=== PATIENT | female | born 1955 | race Caucasian/White ===

== ENCOUNTER 2019-04-30 08:26 | Observation (INO) | payer OTHER ==
[2019-04-30 08:34] VITALS: BMI 24.1
--- NOTE | 2019-04-30 09:10 | EKG ---
Test Reason : Blood Pressure : / mmHG Vent. Rate : 100 BPM Atrial Rate : 100 BPM P-R Int : 148 ms QRS Dur : 082 ms QT Int : 318 ms P-R-T Axes : 056 053 215 degrees QTc Int : 410 ms NORMAL SINUS RHYTHM ABNORMAL ECG WHEN COMPARED WITH ECG OF 27-APR-2019 13:10, NO SIGNIFICANT CHANGE WAS FOUND Confirmed by Esperanza Gr ([id number]) on 04/30/2019 9:10:05 AM Referred By: Confirmed By:Esperanza Gr
[2019-04-30] MEDS ORDERED: ASPIRIN 81 MG CHEWABLE TABLETS PO ONE (09:30)
[2019-04-30] MEDS ORDERED: ASPIRIN 81 MG CHEWABLE TABLETS ONE (09:34)
[2019-04-30] MEDS ORDERED: ASPIRIN COATED 81 MG TABLET.EC ONE (09:35)
--- NOTE | 2019-04-30 09:42 | PDOC ---
History of Present Illness - General Chief Complaint: Chest Pain Stated Complaint: SENT BY PCP Time Seen by Provider: 04/30/19 09:41 - History of Present Illness Initial Comments: 04/30/19 09:41 The patient denies chest pain, shortness of breath, headache and dizziness. Denies fever, chills, nausea, vomit, diarrhea and constipation. Denies dysuria, frequency, urgency and hematuria. Past History - Past Medical History Allergies/Adverse Reactions: Allergies Allergy/AdvReac Type Severity Reaction Status Date / Time naproxen sodium [From Aleve] Allergy Mild Nausea Verified 06/14/13 15:16 Tint in chlora prep AdvReac Intermediate Rash Uncoded 04/21/11 10:35 Home Medications: Ambulatory Orders Atorvastatin Ca [Lipitor] 20 mg PO HS 06/14/13 Calcium [Natural Calcium] 1,200 mg PO DAILY 06/14/13 Cholecalciferol (Vitamin D3) [Vitamin D] 1 tab PO DAILY 06/14/13 Fexofenadine HCl [Milena] 1 tab PO DAILY 06/14/13 Multivitamin [Multi-Day Vitamins] 1 each PO DAILY 06/14/13 Immu Globulin,Gamma (IgG) [Carimune Nf Nanofiltered] 6 gm IJ ASDIR 06/15/13 Anemia: No Asthma: No Cancer: No Cardiac Disorders: No CVA: No COPD: No CHF: No Dementia: No Diabetes: Yes (NO MEDS) GI Disorders: No Disorders: No HTN: No Hypercholesterolemia: Yes Liver Disease: No Seizures: No Thyroid Disease: No - Immunization History Immunization Up to Date: No - Psycho Social/Smoking Cessation Hx Smoking History: Never smoked Have you smoked in the past 12 months: No Information on smoking cessation initiated: No Hx Alcohol Use: No Drug/Substance Use Hx: No Review of Systems - Review of Systems Comments:: 04/30/19 09:41 GENERAL/CONSTITUTIONAL: No fever or chills. No weakness. HEAD, EYES, EARS, NOSE AND THROAT: No change in vision. No ear pain or discharge. No sore throat. CARDIOVASCULAR: No chest pain or shortness of breath RESPIRATORY: No cough, wheezing, or hemoptysis. GASTROINTESTINAL: No nausea, vomiting, diarrhea or constipation. GENITOURINARY: No dysuria, frequency, or change in urination. MUSCULOSKELETAL: No joint or muscle swelling or pain. No neck or back pain. SKIN: No rash NEUROLOGIC: No headache, vertigo, loss of consciousness, or change in strength/ sensation. ENDOCRINE: No increased thirst. No abnormal weight change HEMATOLOGIC/LYMPHATIC: No anemia, easy bleeding, or history of blood clots. ALLERGIC/IMMUNOLOGIC: No hives or skin allergy. *Physical Exam - Vital Signs Last Vital Signs Temp Pulse Resp BP Pulse Ox 97.7 F 103 H 16 130/75 98 04/30/19 08:31 04/30/19 08:31 04/30/19 08:31 04/30/19 08:31 04/30/19 08:31 - Physical Exam 04/30/19 09:42 GENERAL: Awake, alert, and fully oriented, in no acute distress HEAD: No signs of trauma, normocephalic, atraumatic EYES: PERRLA, EOMI, sclera anicteric, conjunctiva clear ENT: Auricles normal inspection, hearing grossly normal, nares patent, oropharynx clear without exudates. Moist mucosa NECK: Normal ROM, supple, no lymphadenopathy, JVD, or masses LUNGS: No distress, speaks full sentences, clear to auscultation bilaterally HEART: Regular rate and rhythm, normal S1 and S2, no murmurs, rubs or gallops, peripheral pulses normal and equal bilaterally. ABDOMEN: Soft, nontender, normoactive bowel sounds. No guarding, no rebound. No masses EXTREMITIES: Normal inspection, Normal range of motion, no edema. No clubbing or cyanosis. NEUROLOGICAL: Cranial nerves II through XII grossly intact. Normal speech, normal gait, no focal sensorimotor deficits SKIN: Warm, Dry, normal turgor, no rashes or lesions noted. ED Treatment Course - Medications Given in the ED: ED Medications Discontinued Medications Generic Name Dose Route Start Last Admin Trade Name Freq PRN Reason Stop Dose Admin Aspirin 324 mg 04/30/19 09:30 04/30/19 09:33 Asa - PO 04/30/19 09:31 324 mg ONCE ONE Administration Discharge - Discharge Information Condition: Stable - Follow up/Referral Referrals: Carmelo White MD [Primary Care Provider] - - Patient Discharge Instructions - Post Discharge Activity
--- NOTE | 2019-04-30 09:45 | PDOC ---
History of Present Illness - General Chief Complaint: Chest Pain Stated Complaint: SENT BY PCP History Source: Patient Exam Limitations: No Limitations - History of Present Illness Initial Comments: 04/30/19 09:39 [id number] with h/o HLD (on medication), borderline DM (states diet controlled), and CIDP (gets IVIG infusion [id number]) who was instructed to come to the ED by her PCP Dr. White for chest tightness and cough x months, as well as new TWI found on EKG in clinic three days ago. She has had the chest "heaviness" and residual cough ever since getting a "chest cold" in 02/2019 and states she feels this cold never completely resolved. The patient had gone home on Tuesday after the EKG was completed, and Dr. White went into the office on Tuesday and called her to notify her of the abnormal results, but she did not waste picker her phone. The patient states she has no change in her symptoms today from the past few months. She denies SOB, LEUNG, dizziness, lightheadedness, edema , abdominal pain, back pain, n/t/w focally, or other symptoms. Past History - Past Medical History Allergies/Adverse Reactions: Allergies Allergy/AdvReac Type Severity Reaction Status Date / Time naproxen sodium [From Aleve] Allergy Mild Nausea Verified 06/14/13 15:16 Tint in chlora prep AdvReac Intermediate Rash Uncoded 04/21/11 10:35 Home Medications: Ambulatory Orders Atorvastatin Ca [Lipitor] 20 mg PO HS 06/14/13 Calcium [Natural Calcium] 1,200 mg PO DAILY 06/14/13 Cholecalciferol (Vitamin D3) [Vitamin D] 1 tab PO DAILY 06/14/13 Fexofenadine HCl [Milena] 1 tab PO DAILY 06/14/13 Multivitamin [Multi-Day Vitamins] 1 each PO DAILY 06/14/13 Immu Globulin,Gamma (IgG) [Carimune Nf Nanofiltered] 6 gm IJ ASDIR 06/15/13 Anemia: No Asthma: No Cancer: No Cardiac Disorders: No CVA: No COPD: No CHF: No Dementia: No Diabetes: Yes (NO MEDS) GI Disorders: No Disorders: No HTN: No Hypercholesterolemia: Yes Liver Disease: No Seizures: No Thyroid Disease: No - Immunization History Immunization Up to Date: No - Psycho Social/Smoking Cessation Hx Smoking History: Never smoked Have you smoked in the past 12 months: No Information on smoking cessation initiated: No Hx Alcohol Use: No Drug/Substance Use Hx: No Cardiac Specific PMH - Complaint Specific PMHX Pacemaker: No Review of Systems - Review of Systems Able to Perform ROS?: Yes Comments:: 04/30/19 09:53 GEN: no fever, chills, malaise, or generalized weakness HEENT: no ear pain, congestion, sore throat, vision change, or eye pain CV: chest heaviness, no palpitations, lightheadedness, syncope, or edema RESP: cough, no SOB, or wheezing GI: no abdominal pain, nausea, vomiting, diarrhea, constipation, or rectal bleed : no dysuria, hematuria, or discharge MSK: no muscle weakness or pain, no joint swelling or pain NEURO: no headache, vertigo, numbness, tingling, or focal weakness PSYCH: no SI, HI, or behavior change SKIN: no jaundice, rash, lesions, or unexplained bruises ROS otherwise negative except as noted in HPI *Physical Exam - Vital Signs Last Vital Signs Temp Pulse Resp BP Pulse Ox 97.7 F 103 H 16 130/75 98 04/30/19 08:31 04/30/19 08:31 04/30/19 08:31 04/30/19 08:31 04/30/19 08:31 - Physical Exam 04/30/19 09:54 GENERAL: well-appearing, A/Ox4, no distress, answers questions appropriately, at bedside appears supportive HEENT: PERRLA, EOMI, moist mucous membranes NECK/BACK: no midline ttp, no spinal stepoff or deformity, no hematoma, full ROM , neck supple CARDIOVASCULAR: regular rate/rhythm, no MGR, strong peripheral pulses, capillary refill <2 seconds, extremities wwp, no edema LUNGS/RESPIRATORY: no respiratory distress, CTAB GI/ABDOMEN: symmetric [id number], normoactive BS, soft, no ttp, no midline pulsatile masses : no CVA tenderness EXTREMITIES: no muscle atrophy, no acute deformity SKIN: warm and dry, no pallor, no jaundice, no rash, no bruising, no skin breakdown, no cuts, no lesions NEUROLOGICAL: GCS 15, CN II-XII grossly intact, 5/5 strength proximally and distally, no facial droop Heart Score/ECG Review - History History: Slightly suspicious - Electrocardiogram EKG: Non specific repolarization disturbance - Age Age: >/= 65 - Risk Factors Risk Factors Heart Score: Yes Hx Hypercholesterolemia Based on the list above the patient has:: 1-2 risk factors - Troponin Troponin: </= normal limit - Score Heart Score - Total: 4 #1 04/30/19 10:54 SR rate 100 with normal axis and intervals, inferolateral TWI, submilimeter TRAVON in V1-2 ED Treatment Course - LABORATORY CBC & Chemistry Diagram: 04/30/19 09:20 04/30/19 09:20 - ADDITIONAL ORDERS Additional order review: Laboratory Results 04/30/19 04/30/19 04/30/19 09:20 09:20 09:20 Sodium 138 Potassium 3.8 Chloride 105 Carbon Dioxide 28 Anion Gap 5 L BUN 14.0 Creatinine 0.6 Est GFR (CKD-EPI)AfAm 110.86 Est GFR (CKD-EPI)NonAf 95.65 Random Glucose 151 H Calcium 9.6 Total Bilirubin 0.5 AST 26 ALT 28 Alkaline Phosphatase 72 Creatine Kinase 102 Troponin I < 0.02 Total Protein 8.0 Albumin 4.1 Urine Color Yellow Urine Appearance Clear Urine pH 7.0 Ur Specific [place] 1.003 L Urine Protein Negative Urine Glucose (UA) Negative Urine Ketones Negative Urine Blood Negative Urine Nitrite Negative Urine Bilirubin Negative Urine Urobilinogen 0.2 Ur Leukocyte Esterase Negative 04/30/19 09:20 RBC 4.61 MCV 89.0 MCHC 34.1 RDW 13.3 MPV 10.4 Neutrophils % 51.3 Lymphocytes % 37.4 D Monocytes % 9.0 Eosinophils % 1.6 Basophils % 0.7 - RADIOLOGY Radiology Studies Ordered: Category Date Time Status CHEST PA & LAT [RAD] Stat Radiology 04/30/19 09:30 Taken - Medications Given in the ED: ED Medications Discontinued Medications Generic Name Dose Route Start Last Admin Trade Name Freq PRN Reason Stop Dose Admin Aspirin 324 mg 04/30/19 09:30 04/30/19 09:33 Asa - PO 04/30/19 09:31 324 mg ONCE ONE Administration Medical Decision Making - Medical Decision Making 04/30/19 09:55 [id number] Pt p/w chest pain x months, new TWI on EKG. Initial Vital Signs Temp Pulse Resp BP Pulse Ox 97.7 F 103 H 16 130/75 98 04/30/19 08:31 04/30/19 08:31 04/30/19 08:31 04/30/19 08:31 04/30/19 08:31 Exam: As noted in Physical Exam section. DDX IBNLT: ACS i.e. unstable angina, stable angina, prior STEMI/NSTEMI, pericarditis, myocarditis, other cardiomyopathy, etc. Very unlikely tamponade, aortic dissection, AAA, PTX, PE, esophageal tear, esophagitis (e.g. pill, infectious), esophageal stricture, esophageal FB, gastritis, PUD, pancreatitis, cholecystitis, cholangitis, colitis, bowel perforation, PNA/bronchitis, pleurisy , pleuritis, MVP, pulmonary HTN, musculoskeletal, panic/anxiety, etc. W/U ordered: labs EKG CXR. TX ordered: warehouse lead, ASA 324 EKG: Reviewed; results as noted in ECG Review section. CXR: Nothing acute Laboratory Tests 04/30/19 04/30/19 04/30/19 09:20 09:20 09:20 WBC RBC Hgb Hct MCV MCH MCHC RDW Plt Count MPV Absolute Neuts (auto) Neutrophils % Lymphocytes % Monocytes % Eosinophils % Basophils % Nucleated RBC % Sodium 138 Potassium 3.8 Chloride 105 Carbon Dioxide 28 Anion Gap 5 L BUN 14.0 Creatinine 0.6 Est GFR (CKD-EPI)AfAm 110.86 Est GFR (CKD-EPI)NonAf 95.65 Random Glucose 151 H Calcium 9.6 Total Bilirubin 0.5 AST 26 ALT 28 Alkaline Phosphatase 72 Creatine Kinase 102 Troponin I < 0.02 Total Protein 8.0 Albumin 4.1 Urine Color Yellow Urine Appearance Clear Urine pH 7.0 Ur Specific [place] 1.003 L Urine Protein Negative Urine Glucose (UA) Negative Urine Ketones Negative Urine Blood Negative Urine Nitrite Negative Urine Bilirubin Negative Urine Urobilinogen 0.2 Ur Leukocyte Esterase Negative 04/30/19 09:20 WBC 4.2 RBC 4.61 Hgb 14.0 Hct 41.0 MCV 89.0 MCH 30.3 MCHC 34.1 RDW 13.3 Plt Count 163 MPV 10.4 Absolute Neuts (auto) 2.1 Neutrophils % 51.3 Lymphocytes % 37.4 D Monocytes % 9.0 Eosinophils % 1.6 Basophils % 0.7 Nucleated RBC % 0 Sodium Potassium Chloride Carbon Dioxide Anion Gap BUN Creatinine Est GFR (CKD-EPI)AfAm Est GFR (CKD-EPI)NonAf Random Glucose Calcium Total Bilirubin AST ALT Alkaline Phosphatase Creatine Kinase Troponin I Total Protein Albumin Urine Color Urine Appearance Urine pH Ur Specific [place] Urine Protein Urine Glucose (UA) Urine Ketones Urine Blood Urine Nitrite Urine Bilirubin Urine Urobilinogen Ur Leukocyte Esterase The Pt is unsafe for discharge at this time. They require further hospital observation, workup, and treatment. Microblog sent to [facility] for admission. Blank Decision to Admit order is placed per ED protocol. 04/30/19 10:40 Spoke with Zena Garland on for [facility] admissions at this time. Decision to Admit corrected to Dr. Crabtree. Discharge - Discharge Information Problems reviewed: Yes Clinical Impression/Diagnosis: T wave inversion in EKG, Cough Chest pain Qualifiers: Chest pain type: unspecified Qualified Code(s): R07.9 - Chest pain, unspecified Condition: Stable - Admission Yes - Follow up/Referral Referrals: Carmelo White MD [Primary Care Provider] - - Patient Discharge Instructions - Post Discharge Activity
[2019-04-30 09:48] LABS: BASO % 0.7 % (0-2.0); EOS % 1.6 % (0-4.5); LYMPH % 37.4 % (8-40); MCH 30.3 pg (25.7-33.7); MCHC 34.1 g/dl (32.0-36.0); MEAN PLT VOLUME 10.4 fl (7.5-11.1); NEUT % 51.3 % (42.8-82.8); PLATELET COUNT 163 K/MM3 (134-434); RBC 4.61 M/mm3 (3.60-5.2); RDW 13.3 % (11.6-15.6); URINE APPEARANCE CLEAR; URINE BILIRUBIN NEGATIVE (NEGATIVE); URINE COLOR YELLOW; URINE GLUCOSE (UA) NEGATIVE (NEGATIVE); URINE KETONE NEGATIVE (NEGATIVE); URINE LEUK ESTERASE NEGATIVE (NEGATIVE); URINE NITRITE NEGATIVE (NEGATIVE); URINE PROTEIN NEGATIVE (NEGATIVE); URINE UROBILINOGEN 0.2 mg/dL (0.2-1.0); WHITE BLOOD COUNT 4.2 K/mm3 (4.0-10.0)
[2019-04-30 10:14] LABS: ALBUMIN 4.1 g/dl (3.4-5.0); BILIRUBIN,TOTAL 0.5 mg/dL (0.2-1); CALCIUM 9.6 mg/dL (8.5-10.1); CREATININE 0.6 mg/dL (0.55-1.3); POTASSIUM 3.8 mmol/L (3.5-5.1)
--- NOTE | 2019-04-30 10:50 | HP ---
CHIEF COMPLAINT: persistent mid sternal non radiating chest pressure for approximately 1 month PCP: Dr. White PCP Dr. Staton cardiology HISTORY OF PRESENT ILLNESS: Patient is a 64 year old female with a significant past medical history of diet controlled diabetes and chronic inflammatory demyelinating polyneuropathy disease with IVIG treatments every 3 months (next due in June 2019). Patient was sent by her PCP for c/o of chest pressure/tightness for over a month and after being found to have ekg changes (t wave inversions) in clinic 3 days ago. Patient reports intermittent chest pressure and dry cough for over a month after having an upper respiratory infection, but feels as though her symptoms never resolved. Patient had EKG on Tuesday at PCP office and was called on Tuesday to be notified of results but patient did not brick picker her phone until today. She denies any other symptoms and denies any shortness of breath with physical exertion. She can go up stairs, lay flat and ambulate without shortness of breath. She denies SOB, dizziness, lightheadedness, edema, abdominal pain, back pain. ER course was notable for: (1) pending stress test (2) negative troponin (3) Recent Travel: none PAST MEDICAL HISTORY: diet controlled diabetes and chronic inflammatory demyelinating polyneuropathy disease PAST SURGICAL HISTORY: n/a Social History: Smoking: denies Alcohol: denies Drugs: denies Allergies naproxen sodium [From Aleve] Allergy (Mild, Verified 06/14/13 15:16) Nausea Tint in chlora prep Adverse Reaction (Intermediate, Uncoded 04/21/11 10:35) Rash HOME MEDICATIONS: Home Medications Medication Instructions Recorded Atorvastatin Ca [Lipitor] 20 mg PO HS 06/14/13 Calcium [Natural Calcium] 1,200 mg PO DAILY 06/14/13 Cholecalciferol (Vitamin D3) 1 tab PO DAILY 06/14/13 [Vitamin D] Fexofenadine HCl [Milena] 1 tab PO DAILY 06/14/13 Multivitamin [Multi-Day Vitamins] 1 each PO DAILY 06/14/13 Immu Globulin,Gamma (IgG) 6 gm IJ ASDIR 06/15/13 [Carimune Nf Nanofiltered] PHYSICAL EXAMINATION Vital Signs - 24 hr 04/30/19 08:31 Temperature 97.7 F Pulse Rate 103 H Respiratory 16 Rate Blood Pressure 130/75 O2 Sat by Pulse 98 Oximetry (%) GENERAL: Awake, alert, and fully oriented, in no acute distress. HEAD: Normal with no signs of trauma. EYES: Pupils equal, round and reactive to light, extraocular movements intact, sclera anicteric, conjunctiva clear. No lid lag. EARS, NOSE, THROAT: Ears normal, nares patent, oropharynx clear without exudates. Moist mucous membranes. NECK: Normal range of motion, supple without lymphadenopathy, JVD, or masses. LUNGS: Breath sounds equal, clear to auscultation bilaterally. HEART: Regular rate and rhythm ABDOMEN: Soft, nontender, not distended, normoactive bowel sounds, no guarding, no rebound, no masses. No hepatomegaly or splenomegaly. MUSCULOSKELETAL: Normal range of motion at all joints. No bony deformities or tenderness. No CVA tenderness. UPPER EXTREMITIES: No peripheral edema. LOWER EXTREMITIES: No peripheral edema. NEUROLOGICAL: Normal speech. Normal gait. PSYCHIATRIC: Cooperative. Good eye contact. Appropriate mood and affect. SKIN: Warm, dry, normal turgor, no rashes or lesions noted, normal capillary refill. Laboratory Results - last 24 hr 04/30/19 04/30/19 04/30/19 09:20 09:20 09:20 WBC RBC Hgb Hct MCV MCH MCHC RDW Plt Count MPV Absolute Neuts (auto) Neutrophils % Lymphocytes % Monocytes % Eosinophils % Basophils % Nucleated RBC % Sodium 138 Potassium 3.8 Chloride 105 Carbon Dioxide 28 Anion Gap 5 L BUN 14.0 Creatinine 0.6 Est GFR (CKD-EPI)AfAm 110.86 Est GFR (CKD-EPI)NonAf 95.65 Random Glucose 151 H Calcium 9.6 Total Bilirubin 0.5 AST 26 ALT 28 Alkaline Phosphatase 72 Creatine Kinase 102 Troponin I < 0.02 Total Protein 8.0 Albumin 4.1 Urine Color Yellow Urine Appearance Clear Urine pH 7.0 Ur Specific [place] 1.003 L Urine Protein Negative Urine Glucose (UA) Negative Urine Ketones Negative Urine Blood Negative Urine Nitrite Negative Urine Bilirubin Negative Urine Urobilinogen 0.2 Ur Leukocyte Esterase Negative 04/30/19 09:20 WBC 4.2 RBC 4.61 Hgb 14.0 Hct 41.0 MCV 89.0 MCH 30.3 MCHC 34.1 RDW 13.3 Plt Count 163 MPV 10.4 Absolute Neuts (auto) 2.1 Neutrophils % 51.3 Lymphocytes % 37.4 D Monocytes % 9.0 Eosinophils % 1.6 Basophils % 0.7 Nucleated RBC % 0 Sodium Potassium Chloride Carbon Dioxide Anion Gap BUN Creatinine Est GFR (CKD-EPI)AfAm Est GFR (CKD-EPI)NonAf Random Glucose Calcium Total Bilirubin AST ALT Alkaline Phosphatase Creatine Kinase Troponin I Total Protein Albumin Urine Color Urine Appearance Urine pH Ur Specific [place] Urine Protein Urine Glucose (UA) Urine Ketones Urine Blood Urine Nitrite Urine Bilirubin Urine Urobilinogen Ur Leukocyte Esterase ASSESSMENT/PLAN: Problem List - Problem (1) Chest pain Assessment/Plan: Monitor on tele serial troponins stress test today monitor labs cardiology following per cardiology echo to be done as an outpt. Code(s): R07.9 - CHEST PAIN, UNSPECIFIED Qualifiers: Chest pain type: unspecified Qualified Code(s): R07.9 - Chest pain, unspecified (2) Cough Assessment/Plan: intermittent cough robitussin prn chest xray clear Code(s): R05 - COUGH (3) T wave inversion in EKG Assessment/Plan: for stress test monitor on tele further testing per cardiology repeat ekg in a.m. Code(s): R94.31 - ABNORMAL ELECTROCARDIOGRAM [ECG] [EKG] (4) Diabetes Assessment/Plan: diet controlled hmga1c in a.m. bgms bid Code(s): E11.9 - TYPE 2 DIABETES MELLITUS WITHOUT COMPLICATIONS (5) Prophylactic measure Assessment/Plan: fen tolerating po monitor labs defer a/c unless here >48 hours Code(s): Z29.9 - ENCOUNTER FOR PROPHYLACTIC MEASURES, UNSPECIFIED Visit type - Emergency Visit Emergency Visit: Yes Care time: The patient presented to the Emergency Department on the above date and was hospitalized for further evaluation of their emergent condition. - New Patient This patient is new to me today: Yes Date on this admission: 04/30/19 - Critical Care Critical Care patient: No
--- NOTE | 2019-04-30 11:09 | CON.CARD ---
Consult Consult Specialty:: CV - History of Present Illness Chief Complaint: chest pain History of Present Illness: 64 F here with CP. saw dr dodd 04/27. new TWIs noted on ekg. advised to come to ER for evaluation--did not. came today describes heaviness in center chest began 2 mo ago when had bad URI with cough. cough nearly resolved but this sensation in chest persists. occurs sporadically, at rest. no worsening with activity e.g. carrying laundry upstairs no severe episodes. feels well at present PMH: HPL - Alcohol/Substance Use Hx Alcohol Use: No - Smoking History Smoking history: Never smoked Have you smoked in the past 12 months: No Home Medications - Allergies Allergies/Adverse Reactions: Allergies Allergy/AdvReac Type Severity Reaction Status Date / Time naproxen sodium [From Aleve] Allergy Mild Nausea Verified 06/14/13 15:16 Tint in chlora prep AdvReac Intermediate Rash Uncoded 04/21/11 10:35 - Home Medications Home Medications: Ambulatory Orders Atorvastatin Ca [Lipitor] 20 mg PO HS 06/14/13 Calcium [Natural Calcium] 1,200 mg PO DAILY 06/14/13 Cholecalciferol (Vitamin D3) [Vitamin D] 1 tab PO DAILY 06/14/13 Fexofenadine HCl [Milena] 1 tab PO DAILY 06/14/13 Multivitamin [Multi-Day Vitamins] 1 each PO DAILY 06/14/13 Immu Globulin,Gamma (IgG) [Carimune Nf Nanofiltered] 6 gm IJ ASDIR 06/15/13 Family Medical History Family History: Denies (no known cmp) Review of Systems - Review of Systems Constitutional: denies: Chills, Fever Eyes: denies: Eye Pain HENT: denies: Nasal Congestion Neck: denies: Stiffness Cardiovascular: denies: Palpitations Respiratory: denies: Orthopnea, PND Gastrointestinal: denies: Diarrhea, Rectal Bleeding Genitourinary: denies: Burning, Hematuria Musculoskeletal: denies: Muscle Pain Integumentary: denies: Rash Neurological: denies: Numbness, Seizure, Syncope Endocrine: denies: Excessive Sweating Hematology/Lymphatic: denies: Excessive Bleeding Vital Signs: Vital Signs Temperature 97.7 F 04/30/19 08:31 Pulse Rate 103 H 04/30/19 08:31 Respiratory Rate 16 04/30/19 08:31 Blood Pressure 130/75 04/30/19 08:31 O2 Sat by Pulse Oximetry (%) 98 04/30/19 08:31 Constitutional: Yes: Well Nourished, No Distress Eyes: No: Sclera Icterus HENT: No: Nasal Congestion Neck: No: Decreased ROM Respiratory: Yes: CTA Bilaterally. No: Accessory Muscle Use Gastrointestinal: Yes: Normal Bowel Sounds. No: Distention, Hepatomegaly, Palpable Mass, Tenderness Cardiovascular: Yes: Regular Rate and Rhythm JVD: No Carotid Bruit: No PMI: Non-Displaced Heart Sounds: Yes: S1, S2. No: Gallop Murmur: No: Systolic Murmur, Diastolic Murmur Musculoskeletal: Yes: Other (No kyphosis) Extremities: No: Cool, Cyanosis Edema: No Peripheral Pulses: 2+ Left Carotid, 2+ Right Carotid, 2+ Left Doralis Pedis, 2+ Right Dorsalis Pedis Integumentary: No: Jaundice Neurological: Yes: Alert, Oriented (x3) Psychiatric: No: Agitated - Other Data Labs, Other Data: CBC, BMP 04/30/19 09:20 04/30/19 09:20 Troponin, BNP 04/30/19 09:20 Troponin I < 0.02 Troponin, BNP 04/30/19 09:20 Troponin I < 0.02 Assessment/Plan ECG 04/27 office: NSR, ischemic appearing ST-Ts V4-6, no LVH--new vs 01/2016 ECG 04/30 ER: not found, asked staff to help--still looking CXR: clear lungs/pleura chest pain: -ischemic appearing ECG changes on 04/27 at PMD office, vs 2016 prior -trop neg here -ekg appearance is concerning, requires test with hi neg predictive value--rec MPI -check echo--this can be done as outpt if needed, pt with no signs/sx of chf HPL: -cont home atorva (20) for now
--- NOTE | 2019-04-30 11:24 | PDOC ---
Documentation entered by Vicki Dacosta SCRIBE, acting as scribe for Murphy Ramesh MD. Murphy Ramesh MD: This documentation has been prepared by the Praneeth elizondo Xhesika, SCRIBE, under my direction and personally reviewed by me in its entirety. I confirm that the documentation accurately reflects all work, treatment, procedures, and medical decision making performed by me. Attending Attestation - Resident Resident Name: DelvalleMarce - ED Attending Attestation I have performed the following: I have examined & evaluated the patient, The case was reviewed & discussed with the resident, I agree w/resident's findings & plan, Exceptions are as noted - HPI HPI: 04/30/19 10:19 The patient is a 64 year old female, with a PMH of DM, HTN, and HLD who presents to the ED referred by PCP, Dr. White for several months of cough and intermittent chest heaviness. Pt states she has had a chest cold since Feb 2019 that has not been resolved. Pt states her chest heaviness is worsened when lying down. Pt states she saw Dr. White on 04/27/2019 and was found to have new EKG changes prompting her arrival to the ED. Pt denies any recent travels. Pt denies history of PE/DVT or LE swelling. The patient denies shortness of breath, and dizziness. Denies fever, chills, nausea, vomiting, and constipation. Allergy: Naproxen Sodium Social: Denies alcohol, cigarette or drug use. - Physicial Exam PE: 04/30/19 10:39 Vitals: Triage Vital signs reviewed General Appearance: no acute distress, well nourished well developed, Neck: Supple;No Nuchal rigidity Chest Wall: Nontender Cardiac: Regular rate and rhythm, no murmurs, no rubs, no gallops, Lungs: Clear to auscultation bilateral, good air movement bilaterally, Extremities: Full range of motion to all extremities, no cyanosis, clubbing, or edema Skin: Warm and dry, no rashes or lesions, no petechiae Neuro: AOX3; Cranial Nerves 2-12 grossly c intact, Strength intact to all extremities, Sensation intact to all extremities, Psych: normal mood, normal affect - Medical Decision Making 04/30/19 16:37 Patient sent to the emergency department for admission for cardiac evaluation We will admit to medicine for further management and cardiac evaluation
--- NOTE | 2019-05-01 08:04 | PN ---
Progress Note, Physician History of Present Illness: Patient is a 64 year old female with a significant past medical history of diet controlled diabetes and chronic inflammatory demyelinating polyneuropathy disease with IVIG treatments every 3 months (next due in June 2019). Patient was sent by her PCP for c/o of chest pressure/tightness for over a month and after being found to have ekg changes (t wave inversions) in clinic 3 days ago. Patient reports intermittent chest pressure and dry cough for over a month after having an upper respiratory infection, but feels as though her symptoms never resolved. 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 She denies any other symptoms and denies any shortness of breath with physical exertion. She can go up stairs, lay flat and ambulate without shortness of breath. She denies SOB, dizziness, lightheadedness, edema, abdominal pain, back pain. - Objective Vital Signs: Vital Signs Temperature 97.7 F 05/01/19 06:00 Pulse Rate 79 05/01/19 06:00 Respiratory Rate 20 05/01/19 06:00 Blood Pressure 127/71 05/01/19 06:00 O2 Sat by Pulse Oximetry (%) 97 04/30/19 20:27 Labs: CBC, BMP 04/30/19 09:20 04/30/19 09:20 Problem List - Problems (1) Chest pain Code(s): R07.9 - CHEST PAIN, UNSPECIFIED Qualifiers: Chest pain type: unspecified Qualified Code(s): R07.9 - Chest pain, unspecified (2) Cough Code(s): R05 - COUGH (3) Diabetes Code(s): E11.9 - TYPE 2 DIABETES MELLITUS WITHOUT COMPLICATIONS (4) Prophylactic measure Code(s): Z29.9 - ENCOUNTER FOR PROPHYLACTIC MEASURES, UNSPECIFIED (5) T wave inversion in EKG Code(s): R94.31 - ABNORMAL ELECTROCARDIOGRAM [ECG] [EKG]
[2019-05-01 09:10] LABS: BASO % 0.6 % (0-2.0); EOS % 2.4 % (0-4.5); HEMATOCRIT 38.8 % (32.4-45.2); HEMOGLOBIN 13.3 GM/dL (10.7-15.3); LYMPH % 35.2 % (8-40); MCH 30.4 pg (25.7-33.7); MCHC 34.3 g/dl (32.0-36.0); MEAN CELL VOLUME 88.7 fl (80-96); MEAN PLT VOLUME 10.6 fl (7.5-11.1); MONO % 7.8 % (3.8-10.2); PLATELET COUNT 157 K/MM3 (134-434); RBC 4.37 M/mm3 (3.60-5.2); RDW 13.4 % (11.6-15.6); WHITE BLOOD COUNT 3.9 K/mm3 (4.0-10.0)
[2019-05-01 09:42] LABS: ALBUMIN 3.7 g/dl (3.4-5.0); ALK PHOS 63 U/L (45-117); ANION GAP 7 MMOL/L (8-16); BILIRUBIN,TOTAL 0.6 mg/dL (0.2-1); BLOOD UREA NITROGEN 13.1 mg/dL (7-18); CALCIUM 9.4 mg/dL (8.5-10.1); CHLORIDE 104 mmol/L (98-107); CHOLESTEROL 197 mg/dL (50-200); CO2 27 mmol/L (21-32); CREATININE 0.6 mg/dL (0.55-1.3); GLUCOSE,RANDOM 119 mg/dL (74-106); HDL CHOLESTEROL 86 mg/dL (40-60); LDL CHOLESTEROL (ONLY SJRH) 91 mg/dL (5-100); MAGNESIUM 2.1 mg/dL (1.8-2.4); POTASSIUM 3.9 mmol/L (3.5-5.1); SGOT/AST 21 U/L (15-37); SGPT/ALT 28 U/L (13-61); SODIUM 138 mmol/L (136-145); TOT PROT 7.6 g/dl (6.4-8.2); TRIGLYCERIDES 77 mg/dL (0-150)
[2019-05-01] MEDS ORDERED: MULTIVITAMINS (DAILY MVI) TABLET (FP) PO SCH (10:00)
[2019-05-01] MEDS ORDERED: CALCIUM 1200 MG PO SCH (10:00)
--- NOTE | 2019-05-01 11:04 | PN ---
Progress Note (short form) - Note Progress Note: s: no chest pain, palps, dizziness, dyspnea Current Medications Atorvastatin Calcium (Lipitor -) 20 mg PO HS [facility] Multivitamins/Minerals/Vitamin C (Tab-A-Vit -) 1 tab PO DAILY [facility] Last Admin: 05/01/19 09:02 Dose: 1 tab Non-Formulary Medication (Calcium [Natural Calcium]) 1,200 mg PO DAILY [facility] Vital Signs Period Temp Pulse Resp BP Sys/Ferguson Pulse Ox Last 24 Hr 97.7 F-98.5 F 75-88 19-20 109-132/57-79 96-100 Constitutional: Yes: Well Nourished, No Distress Eyes: No: Sclera Icterus HENT: No: Nasal Congestion Neck: No: Decreased ROM Respiratory: Yes: CTA Bilaterally. No: Accessory Muscle Use Gastrointestinal: Yes: Normal Bowel Sounds. No: Distention, Hepatomegaly, Palpable Mass, Tenderness Cardiovascular: Yes: Regular Rate and Rhythm JVD: No Carotid Bruit: No PMI: Non-Displaced Heart Sounds: Yes: S1, S2. No: Gallop Murmur: No: Systolic Murmur, Diastolic Murmur Musculoskeletal: Yes: Other (No kyphosis) Extremities: No: Cool, Cyanosis Edema: No Peripheral Pulses: 2+ Left Carotid, 2+ Right Carotid, 2+ Left Doralis Pedis, 2+ Right Dorsalis Pedis Integumentary: No: Jaundice Neurological: Yes: Alert, Oriented (x3) Psychiatric: No: Agitated Assessment/Plan ECG 04/27 office: NSR, ischemic appearing ST-Ts V4-6, no LVH--new vs 01/2016 ECG 04/30 ER: q waves V1/V2 new vs 04/27 ? lead placement. ST-Ts anterolat leads persist, similar but less magnitude. CXR: clear lungs/pleura mibi 04/2019 no ischemia, nl LV function chest pain: -ischemic appearing ECG changes on 04/27 at PMD office, vs 2015 prior -trop neg here -mibi here unremarkable -echo may be done as outpatient, no signs/sx of chf, feels at baseline and wants to go home - no further inpatient cardiac workup HPL: -cont statin
--- NOTE | 2019-05-01 11:46 | DS ---
Physical Exam: SUBJECTIVE: Patient seen and examined Medically cleared for discharge to home OBJECTIVE: Vital Signs Period Temp Pulse Resp BP Sys/Ferguson Pulse Ox Last 24 Hr 97.7 F-98.5 F 75-88 19-20 109-132/57-79 96-100 PHYSICAL EXAM GENERAL: Awake, alert, and fully oriented, in no acute distress. HEAD: Normal with no signs of trauma. EYES: Pupils equal, round and reactive to light, extraocular movements intact, sclera anicteric, conjunctiva clear. No lid lag. EARS, NOSE, THROAT: Ears normal, nares patent, oropharynx clear without exudates. Moist mucous membranes. NECK: Normal range of motion, supple without lymphadenopathy, JVD, or masses. LUNGS: Breath sounds equal, clear to auscultation bilaterally. HEART: Regular rate and rhythm ABDOMEN: Soft, nontender, not distended, normoactive bowel sounds, no guarding, no rebound, no masses. No hepatomegaly or splenomegaly. MUSCULOSKELETAL: Normal range of motion at all joints. No bony deformities or tenderness. No CVA tenderness. UPPER EXTREMITIES: No peripheral edema. LOWER EXTREMITIES: No peripheral edema. NEUROLOGICAL: Normal speech. Normal gait. PSYCHIATRIC: Cooperative. Good eye contact. Appropriate mood and affect. SKIN: Warm, dry, normal turgor, no rashes or lesions noted, normal capillary refill. LABS Laboratory Results - last 24 hr 04/30/19 05/01/19 05/01/19 22:00 06:49 08:35 WBC 3.9 L RBC 4.37 Hgb 13.3 Hct 38.8 MCV 88.7 MCH 30.4 MCHC 34.3 RDW 13.4 Plt Count 157 MPV 10.6 Absolute Neuts (auto) 2.1 Neutrophils % 54.0 Lymphocytes % 35.2 Monocytes % 7.8 Eosinophils % 2.4 Basophils % 0.6 Nucleated RBC % 0 Sodium Potassium Chloride Carbon Dioxide Anion Gap BUN Creatinine Est GFR (CKD-EPI)AfAm Est GFR (CKD-EPI)NonAf POC Glucometer 108 Random Glucose Hemoglobin A1c % Calcium Magnesium Total Bilirubin AST ALT Alkaline Phosphatase Troponin I < 0.02 Total Protein Albumin Triglycerides Cholesterol Total LDL Cholesterol HDL Cholesterol 05/01/19 05/01/19 08:35 08:35 WBC RBC Hgb Hct MCV MCH MCHC RDW Plt Count MPV Absolute Neuts (auto) Neutrophils % Lymphocytes % Monocytes % Eosinophils % Basophils % Nucleated RBC % Sodium 138 Potassium 3.9 Chloride 104 Carbon Dioxide 27 Anion Gap 7 L BUN 13.1 Creatinine 0.6 Est GFR (CKD-EPI)AfAm 110.86 Est GFR (CKD-EPI)NonAf 95.65 POC Glucometer Random Glucose 119 H Hemoglobin A1c % 6.8 H Calcium 9.4 Magnesium 2.1 Total Bilirubin 0.6 AST 21 ALT 28 Alkaline Phosphatase 63 Troponin I < 0.02 Total Protein 7.6 Albumin 3.7 Triglycerides 77 Cholesterol 197 Total LDL Cholesterol 91 HDL Cholesterol 86 H HOSPITAL COURSE: Date of Admission:04/30/19 Date of Discharge: 05/01/19 Problems (1) Chest pain Assessment/Plan: stress test done without any ischemia follow with home appraiser art c/w atorvastatin Code(s): R07.9 - CHEST PAIN, UNSPECIFIED Qualifiers: Chest pain type: unspecified Qualified Code(s): R07.9 - Chest pain, unspecified (2) Cough Assessment/Plan: resolved Code(s): R05 - COUGH (3) Diabetes Assessment/Plan: diet controlled HgbA1C 6.8 Code(s): E11.9 - TYPE 2 DIABETES MELLITUS WITHOUT COMPLICATIONS (4) Prophylactic measure Assessment/Plan: Medically cleared for discharge to home Code(s): Z29.9 - ENCOUNTER FOR PROPHYLACTIC MEASURES, UNSPECIFIED (5) T wave inversion in EKG Assessment/Plan: ST performed without evidence of ischemia Code(s): R94.31 - ABNORMAL ELECTROCARDIOGRAM [ECG] [EKG] Medically cleared for discharge to home Minutes to complete discharge: 35 Discharge Summary Problems reviewed: Yes Reason For Visit: COUGH Current Active Problems Chest pain (Acute) Cough (Acute) Diabetes (Acute) Prophylactic measure (Acute) T wave inversion in EKG (Acute) Hospital Course: Problems (1) Chest pain Assessment/Plan: stress test done without any ischemia follow with home appraiser art c/w atorvastatin Code(s): R07.9 - CHEST PAIN, UNSPECIFIED Qualifiers: Chest pain type: unspecified Qualified Code(s): R07.9 - Chest pain, unspecified (2) Cough Assessment/Plan: resolved Code(s): R05 - COUGH (3) Diabetes Assessment/Plan: diet controlled HgbA1C 6.8 Code(s): E11.9 - TYPE 2 DIABETES MELLITUS WITHOUT COMPLICATIONS (4) Prophylactic measure Assessment/Plan: Medically cleared for discharge to home Code(s): Z29.9 - ENCOUNTER FOR PROPHYLACTIC MEASURES, UNSPECIFIED (5) T wave inversion in EKG Assessment/Plan: ST performed without evidence of ischemia Code(s): R94.31 - ABNORMAL ELECTROCARDIOGRAM [ECG] [EKG] Condition: Improved - Instructions Diet, Activity, Other Instructions: DISCHARGE YOUR VISIT You came to the hospital because had an abnormal EKG. A stress test was done that showed no ischemia to the heart. You can follow with Dr White and your home appraiser art MEDICATIONS Please continue to take your home medications as prescribed. There was no changes DIET Continue your home diet ADDITIONAL CARE Please make an appointment to see your primary care provider, Dr White 3 weeks from today. ADDITIONAL INFORMATION Please call 911 or come directly to the emergency department if you experience unusual headache, vision change, shortness of breath, chest pain, numbness, tingling, loss of alertness/awareness, loss of function, unusual bleeding or any alarming symptoms. Thank you for allowing me to care for you. César Garcia, [facility], [facility] [phone] Referrals: Carmelo White MD [Primary Care Provider] - - Home Medications Comprehensive Discharge Medication List: Ambulatory Orders Atorvastatin Ca [Lipitor] 20 mg PO HS 06/14/13 Calcium [Natural Calcium] 1,200 mg PO DAILY 06/14/13 Cholecalciferol (Vitamin D3) [Vitamin D] 1 tab PO DAILY 06/14/13 Fexofenadine HCl [Milena] 1 tab PO DAILY 06/14/13 Multivitamin [Multi-Day Vitamins] 1 each PO DAILY 06/14/13 Immu Globulin,Gamma (IgG) [Carimune Nf Nanofiltered] 6 gm IJ ASDIR 06/15/13 Problem List - Problems (1) Chest pain Assessment/Plan: stress test done without any ischemia follow with home appraiser art c/w atorvastatin Code(s): R07.9 - CHEST PAIN, UNSPECIFIED Qualifiers: Chest pain type: unspecified Qualified Code(s): R07.9 - Chest pain, unspecified (2) Cough Assessment/Plan: resolved Code(s): R05 - COUGH (3) Diabetes Assessment/Plan: diet controlled HgbA1C 6.8 Code(s): E11.9 - TYPE 2 DIABETES MELLITUS WITHOUT COMPLICATIONS (4) Prophylactic measure Assessment/Plan: Medically cleared for discharge to home Code(s): Z29.9 - ENCOUNTER FOR PROPHYLACTIC MEASURES, UNSPECIFIED (5) T wave inversion in EKG Assessment/Plan: ST performed without evidence of ischemia Code(s): R94.31 - ABNORMAL ELECTROCARDIOGRAM [ECG] [EKG] This patient is new to me today: Yes Date on this admission: 05/01/19 Emergency Visit: Yes ED Registration Date: 04/30/19 Care time: The patient presented to the Emergency Department on the above date and was hospitalized for further evaluation of their emergent condition. Critical Care patient: No - Discharge Referral Referred to [facility] No
[2019-05-01 13:33] VITALS: BP 108/65; PULSE 91; TEMP 98.1
[2019-05-01] MEDS ORDERED: ATORVASTATIN CA 20 MG TABLET (FP) PO SCH (22:00)
== END 2019-05-01 16:05 | disposition home or self-care (01) ==
LOC: JER 08:26 → JERBED 10:24 → J4S 19:59
PROVIDERS: ADMIT Internal Medicine; ATTEND Nurse Practitioner Acute Care
DX: R05 Cough (principal); R07.89 Other chest pain; G61.81 Chronic inflammatory demyelinating polyneuritis; I10 Essential (primary) hypertension; E78.5 Hyperlipidemia, unspecified; R73.03 Prediabetes; Z88.8 Allergy status to other drugs, medicaments and biological substances; Z29.8 Encounter for other specified prophylactic measures
CPT/HCPCS: 36415; 71046-TC-FY; 78452-TC; 80053; 80061; 81003; 82550; 82962; 83036; 83721; 83735; 84484; 85025; 93005; 93010; 93017; 99285-25; A9502; G0378

== ENCOUNTER 2023-11-29 04:25 | Day surgery (SDC) | payer OTHER ==
[2023-11-23 11:18] VITALS: BMI 20.9
[2023-11-29 08:45] VITALS: TEMP 98.1
[2023-11-29 09:17] VITALS: BP 110/54; PULSE 74; RESP 16
== END 2023-11-29 09:25 | disposition home or self-care (01) ==
LOC: JASU-ENDO 04:25
PROVIDERS: ATTEND Internal Medicine Gastroenterology
PROC: 0DJD8ZZ Inspection of Lower Intestinal Tract, Via Natural or Artificial Opening Endoscopic (ICD-10-PCS; principal; 2023-11-29 08:00)
DX: Z12.11 Encounter for screening for malignant neoplasm of colon (principal); K57.30 Diverticulosis of large intestine without perforation or abscess without bleeding; Z86.010 Personal history of colon polyps